=== PATIENT | male | born 1945 | race Caucasian/White ===

== ENCOUNTER → 2020-09-28 | Outpatient (CLI) | payer OTHER ==
[~2020-09-28] VITALS: Ht 182.9 cm; Wt 88.0 kg
[~2020-09-28] MED LIST: DEPO-TESTO200 MG/1 M IM; FLOMAX0.4 MG PO; FLONASE 0.05%50 MCG NARES; LISINOPRIL30 MG PO; METHOCARBAMOL500 M2 PO; MORPHINE SULFAT15 MG PO; NEURONTIN300 MG PO; NIFEDIPINE ER30 MG PO; NIFEDIPINE ER60 M1 PO; OXYBUTYNIN 5 MG5 M2 PO; PERCOCET 10-321 EAC1 PO; SILDENAFIL CIT100 MG PO; VENTOLIN HFA INH8 GM INH; VITAMIN B-121000 MC2 INJECTION
[2020-09-28 10:34] VITALS: BP 147/82
--- NOTE | 2020-09-28 11:34 | NUR ---
Pain Clinic Assessment: 1. History of Osteoarthritis: BACK NECK KNEES History of Rheumatoid Arthritis: DENIES 2. Height: 6 ft. 0 in. 182.9 cm. Weight: 194.0 lb. oz. 87.998 kg. Patient's BMI: 26.3 3. Vital Signs: BP: 147/82 Pulse: 89 Resp: 16 Temp: 02 Sat: 96 ECG Mon: 4. Pain Intensity: 4 to 10 5. Fall Risk: Dizziness: N Needs help standing or walking: N Fallen in the last 3 months: N Fall risk comments: 6. Patient on Blood Thinner: None 7. History of Hypertension: Y 8. Opioid Therapy greater than 6 weeks: Y Opiate Contract Signed: 9. Risk Assessment Tool Provided: LOW-3 10. Functional Assessment Tool: 50/70 11. Recreational Drug Use: Never Drug Type: Tobacco Use: Former Smoker Tobacco Type: Amount or Packs/day: How Many Years: Alcohol Use: Past use Frequency: Quant:
== END ==
LOC: PAIN 06:51
PROVIDERS: ATTEND Anesthesiology Pain Medicine
DX: M54.5 Low back pain (principal); M54.2 Cervicalgia; M47.812 Spondylosis without myelopathy or radiculopathy, cervical region; I10 Essential (primary) hypertension; Z79.899 Other long term (current) drug therapy

== ENCOUNTER → 2020-10-26 | Outpatient (CLI) | payer OTHER ==
[~2020-10-26] VITALS: Ht 182.9 cm; Wt 88.3 kg
[2020-10-26 08:03] VITALS: BP 133/69
--- NOTE | 2020-10-26 08:13 | NUR ---
Pain Clinic Assessment: 1. History of Osteoarthritis: BACK NECK KNEES History of Rheumatoid Arthritis: DENIES 2. Height: 6 ft. 0 in. 182.9 cm. Weight: 194.6 lb. oz. 88.270 kg. Patient's BMI: 26.4 3. Vital Signs: BP: 133/69 Pulse: 72 Resp: 16 Temp: 02 Sat: 97 ECG Mon: 4. Pain Intensity: 3 5. Fall Risk: Dizziness: N Needs help standing or walking: N Fallen in the last 3 months: N Fall risk comments: 6. Patient on Blood Thinner: None 7. History of Hypertension: Y 8. Opioid Therapy greater than 6 weeks: Y Opiate Contract Signed: 9. Risk Assessment Tool Provided: LOW-3 10. Functional Assessment Tool: 50/70 11. Recreational Drug Use: Never Drug Type: Tobacco Use: Former Smoker Tobacco Type: Amount or Packs/day: How Many Years: Alcohol Use: Past use Frequency: Quant:
== END ==
LOC: PAIN 06:45
PROVIDERS: ATTEND Anesthesiology Pain Medicine
DX: M47.812 Spondylosis without myelopathy or radiculopathy, cervical region (principal); I10 Essential (primary) hypertension; F11.20 Opioid dependence, uncomplicated; Z79.899 Other long term (current) drug therapy; Z79.890 Hormone replacement therapy; Z87.891 Personal history of nicotine dependence

== ENCOUNTER → 2020-12-07 | Outpatient (CLI) | payer OTHER ==
[~2020-12-07] VITALS: Ht 182.9 cm; Wt 83.7 kg
[2020-12-07 14:17] VITALS: BP 115/60
--- NOTE | 2020-12-07 14:28 | NUR ---
Pain Clinic Assessment: 1. History of Osteoarthritis: BACK NECK KNEES History of Rheumatoid Arthritis: DENIES 2. Height: 6 ft. 0 in. 182.9 cm. Weight: 184.6 lb. oz. 83.734 kg. Patient's BMI: 25.0 3. Vital Signs: BP: 115/60 Pulse: 98 Resp: 16 Temp: 02 Sat: 96 ECG Mon: 4. Pain Intensity: 8 5. Fall Risk: Dizziness: N Needs help standing or walking: N Fallen in the last 3 months: N Fall risk comments: 1 6. Patient on Blood Thinner: None 7. History of Hypertension: Y 8. Opioid Therapy greater than 6 weeks: Y Opiate Contract Signed: 9. Risk Assessment Tool Provided: LOW-3 10. Functional Assessment Tool: 50/70 11. Recreational Drug Use: Never Drug Type: Tobacco Use: Former Smoker Tobacco Type: Amount or Packs/day: How Many Years: Alcohol Use: Past use Frequency: Quant:
== END ==
LOC: PAIN 12:19
PROVIDERS: ATTEND Anesthesiology Pain Medicine
DX: M54.5 Low back pain (principal); I10 Essential (primary) hypertension; E23.0 Hypopituitarism; Z79.899 Other long term (current) drug therapy

== ENCOUNTER → 2021-01-04 | Outpatient (CLI) | payer OTHER ==
[~2021-01-04] VITALS: Ht 182.9 cm; Wt 85.0 kg
[2021-01-04 08:54] VITALS: BP 116/68
--- NOTE | 2021-01-04 10:10 | NUR ---
Pain Clinic Assessment: 1. History of Osteoarthritis: BACK NECK KNEES History of Rheumatoid Arthritis: DENIES 2. Height: 6 ft. in. 182.9 cm. Weight: 187.4 lb. oz. 85.004 kg. Patient's BMI: 25.4 3. Vital Signs: BP: 116/68 Pulse: 78 Resp: 18 Temp: 02 Sat: 97 ECG Mon: 4. Pain Intensity: 4 5. Fall Risk: Dizziness: N Needs help standing or walking: N Fallen in the last 3 months: N Fall risk comments: 1 6. Patient on Blood Thinner: None 7. History of Hypertension: Y 8. Opioid Therapy greater than 6 weeks: Y Opiate Contract Signed: 9. Risk Assessment Tool Provided: LOW-3 10. Functional Assessment Tool: 50/70 11. Recreational Drug Use: Never Drug Type: Tobacco Use: Former Smoker Tobacco Type: Amount or Packs/day: How Many Years: Alcohol Use: Past use Frequency: Quant:
== END ==
LOC: PAIN 07:20
PROVIDERS: ATTEND Anesthesiology Pain Medicine
DX: M48.02 Spinal stenosis, cervical region (principal); E29.1 Testicular hypofunction; I10 Essential (primary) hypertension; Z79.890 Hormone replacement therapy; Z79.899 Other long term (current) drug therapy; Z79.891 Long term (current) use of opiate analgesic; Z87.891 Personal history of nicotine dependence

== ENCOUNTER → 2021-02-01 | Outpatient (CLI) | payer OTHER ==
[~2021-02-01] VITALS: Ht 182.9 cm; Wt 86.5 kg
[~2021-02-01] MED LIST changes: +ARIMIDEX1 MG PO; +PROSCAR 5MG TABL5 M1 PO
[2021-02-01 08:07] VITALS: BP 117/69
--- NOTE | 2021-02-01 08:16 | NUR ---
Pain Clinic Assessment: 1. History of Osteoarthritis: BACK NECK KNEES History of Rheumatoid Arthritis: DENIES 2. Height: 6 ft. 0 in. 182.9 cm. Weight: 190.6 lb. oz. 86.456 kg. Patient's BMI: 25.8 3. Vital Signs: BP: 117/69 Pulse: 85 Resp: 16 Temp: 02 Sat: 96 ECG Mon: 4. Pain Intensity: 3 5. Fall Risk: Dizziness: Y Needs help standing or walking: N Fallen in the last 3 months: N Fall risk comments: 1 6. Patient on Blood Thinner: None 7. History of Hypertension: Y 8. Opioid Therapy greater than 6 weeks: Y Opiate Contract Signed: 9. Risk Assessment Tool Provided: LOW-3 10. Functional Assessment Tool: 50/70 11. Recreational Drug Use: Never Drug Type: Tobacco Use: Former Smoker Tobacco Type: Amount or Packs/day: How Many Years: Alcohol Use: Past use Frequency: Quant:
== END ==
LOC: PAIN 06:54
PROVIDERS: ATTEND Anesthesiology Pain Medicine
DX: M48.061 Spinal stenosis, lumbar region without neurogenic claudication (principal); M47.812 Spondylosis without myelopathy or radiculopathy, cervical region; G89.29 Other chronic pain; E29.1 Testicular hypofunction; I10 Essential (primary) hypertension; Z79.890 Hormone replacement therapy; Z79.891 Long term (current) use of opiate analgesic; Z79.899 Other long term (current) drug therapy; Z87.891 Personal history of nicotine dependence; Z96.612 Presence of left artificial shoulder joint; Z96.653 Presence of artificial knee joint, bilateral

== ENCOUNTER → 2021-03-01 | Outpatient (CLI) | payer OTHER ==
[~2021-03-01] VITALS: Ht 182.9 cm; Wt 85.0 kg
[~2021-03-01] MED LIST changes: +MOBIC15 MG PO
[2021-03-01 08:11] VITALS: BP 113/59
--- NOTE | 2021-03-01 08:20 | NUR ---
Pain Clinic Assessment: 1. History of Osteoarthritis: BACK NECK KNEES History of Rheumatoid Arthritis: DENIES 2. Height: 6 ft. 0 in. 182.9 cm. Weight: 187.4 lb. oz. 85.004 kg. Patient's BMI: 25.4 3. Vital Signs: BP: 113/59 Pulse: 76 Resp: 14 Temp: 02 Sat: 97 ECG Mon: 4. Pain Intensity: 3 5. Fall Risk: Dizziness: N Needs help standing or walking: N Fallen in the last 3 months: N Fall risk comments: 1 6. Patient on Blood Thinner: None 7. History of Hypertension: Y 8. Opioid Therapy greater than 6 weeks: Y Opiate Contract Signed: 01/04/21 9. Risk Assessment Tool Provided: LOW-3 10. Functional Assessment Tool: 50/ 11. Recreational Drug Use: Never Drug Type: Tobacco Use: Former Smoker Tobacco Type: Amount or Packs/day: How Many Years: Alcohol Use: Past use Frequency: Quant:
== END ==
LOC: PAIN 06:46
PROVIDERS: ATTEND Anesthesiology Pain Medicine
DX: M48.061 Spinal stenosis, lumbar region without neurogenic claudication (principal); M19.90 Unspecified osteoarthritis, unspecified site; E29.1 Testicular hypofunction; I10 Essential (primary) hypertension; Z79.899 Other long term (current) drug therapy; Z79.891 Long term (current) use of opiate analgesic

== ENCOUNTER → 2021-03-29 | Outpatient (CLI) | payer OTHER ==
[~2021-03-29] VITALS: Ht 182.9 cm; Wt 86.7 kg
[2021-03-29 08:08] VITALS: BP 128/65
--- NOTE | 2021-03-29 08:18 | NUR ---
Pain Clinic Assessment: 1. History of Osteoarthritis: BACK NECK KNEES History of Rheumatoid Arthritis: DENIES 2. Height: 6 ft. 0 in. 182.9 cm. Weight: 191.2 lb. oz. 86.728 kg. Patient's BMI: 25.9 3. Vital Signs: BP: 128/65 Pulse: 72 Resp: 14 Temp: 02 Sat: 97 ECG Mon: 4. Pain Intensity: 3 5. Fall Risk: Dizziness: N Needs help standing or walking: N Fallen in the last 3 months: N Fall risk comments: 1 6. Patient on Blood Thinner: None 7. History of Hypertension: Y 8. Opioid Therapy greater than 6 weeks: Y Opiate Contract Signed: 01/04/21 9. Risk Assessment Tool Provided: LOW-3 10. Functional Assessment Tool: / 11. Recreational Drug Use: Never Drug Type: Tobacco Use: Former Smoker Tobacco Type: Amount or Packs/day: How Many Years: Alcohol Use: Past use Frequency: Quant:
== END ==
LOC: PAIN 06:46
PROVIDERS: ATTEND Anesthesiology Pain Medicine
DX: G89.29 Other chronic pain (principal); M54.5 Low back pain; M48.00 Spinal stenosis, site unspecified; M47.812 Spondylosis without myelopathy or radiculopathy, cervical region; I10 Essential (primary) hypertension; Z79.891 Long term (current) use of opiate analgesic; Z79.899 Other long term (current) drug therapy

== ENCOUNTER → 2021-04-26 | Outpatient (CLI) | payer OTHER ==
[~2021-04-26] VITALS: Ht 182.9 cm; Wt 86.6 kg
[2021-04-26 08:11] VITALS: BP 142/75
--- NOTE | 2021-04-26 08:16 | NUR ---
Pain Clinic Assessment: 1. History of Osteoarthritis: BACK NECK KNEES History of Rheumatoid Arthritis: DENIES 2. Height: 6 ft. 0 in. 182.9 cm. Weight: 191.0 lb. oz. 86.637 kg. Patient's BMI: 25.9 3. Vital Signs: BP: 142/75 Pulse: Resp: 79 Temp: 02 Sat: 97 ECG Mon: 4. Pain Intensity: 4 5. Fall Risk: Dizziness: N Needs help standing or walking: N Fallen in the last 3 months: N Fall risk comments: 1 6. Patient on Blood Thinner: None 7. History of Hypertension: Y 8. Opioid Therapy greater than 6 weeks: Y Opiate Contract Signed: 01/04/21 9. Risk Assessment Tool Provided: LOW-3 10. Functional Assessment Tool: 50/ 11. Recreational Drug Use: Never Drug Type: Tobacco Use: Former Smoker Tobacco Type: Amount or Packs/day: How Many Years: Alcohol Use: Past use Frequency: Quant:
== END ==
LOC: PAIN 06:54
PROVIDERS: ATTEND Anesthesiology Pain Medicine
DX: G89.29 Other chronic pain (principal); M54.5 Low back pain; M47.812 Spondylosis without myelopathy or radiculopathy, cervical region; E29.1 Testicular hypofunction; I10 Essential (primary) hypertension; Z79.899 Other long term (current) drug therapy; Z96.612 Presence of left artificial shoulder joint; Z96.653 Presence of artificial knee joint, bilateral

== ENCOUNTER → 2021-05-24 | Outpatient (CLI) | payer OTHER ==
[~2021-05-24] VITALS: Ht 182.9 cm; Wt 83.1 kg
[~2021-05-24] MED LIST changes: +CEFPODOXIME PR200 M1 PO; +DEXAMETHASONE6 MG PO; +ELIQUIS5 MG PO; +MAGNESIUM500 MG PO; +VITAMIN D350 MCG PO; +ZINC50 M3 PO; +ZOLPIDEM TARTRA10 MG PO
[2021-05-24 08:13] VITALS: BP 144/75
[2021-05-24 08:15] VITALS: BP 144/81
--- NOTE | 2021-05-24 08:24 | NUR ---
Pain Clinic Assessment: 1. History of Osteoarthritis: BACK NECK KNEES History of Rheumatoid Arthritis: DENIES 2. Height: 6 ft. 0 in. 182.9 cm. Weight: 183.3 lb. oz. 83.144 kg. Patient's BMI: 24.9 3. Vital Signs: BP: 144/81 Pulse: 82 Resp: 14 Temp: 02 Sat: 97 ECG Mon: 4. Pain Intensity: 4 5. Fall Risk: Dizziness: N Needs help standing or walking: N Fallen in the last 3 months: N Fall risk comments: 1 6. Patient on Blood Thinner: JOY 7. History of Hypertension: Y 8. Opioid Therapy greater than 6 weeks: Y Opiate Contract Signed: 01/04/21 9. Risk Assessment Tool Provided: LOW-3 10. Functional Assessment Tool: 11. Recreational Drug Use: Never Drug Type: Tobacco Use: Former Smoker Tobacco Type: Amount or Packs/day: How Many Years: Alcohol Use: Past use Frequency: Quant:
== END ==
LOC: PAIN 06:53
PROVIDERS: ATTEND Anesthesiology Pain Medicine
DX: M48.061 Spinal stenosis, lumbar region without neurogenic claudication (principal); G89.29 Other chronic pain; M47.816 Spondylosis without myelopathy or radiculopathy, lumbar region; M13.88 Other specified arthritis, other site; I10 Essential (primary) hypertension; Z79.891 Long term (current) use of opiate analgesic; Z96.612 Presence of left artificial shoulder joint; Z96.653 Presence of artificial knee joint, bilateral

== ENCOUNTER → 2021-06-21 | Outpatient (CLI) | payer OTHER ==
[~2021-06-21] VITALS: Ht 182.9 cm; Wt 83.2 kg
[~2021-06-21] MED LIST changes: +CARAFATE 1 GM TA1 GM PO; +NEXIUM 40 MG CA40 M1 PO
[2021-06-21 08:29] VITALS: BP 146/83
--- NOTE | 2021-06-21 08:33 | NUR ---
Pain Clinic Assessment: 1. History of Osteoarthritis: BACK NECK KNEES History of Rheumatoid Arthritis: DENIES 2. Height: 6 ft. 0 in. 182.9 cm. Weight: 183.4 lb. oz. 83.190 kg. Patient's BMI: 24.9 3. Vital Signs: BP: 146/83 Pulse: 90 Resp: 18 Temp: 02 Sat: 98 ECG Mon: 4. Pain Intensity: 4 5. Fall Risk: Dizziness: N Needs help standing or walking: N Fallen in the last 3 months: N Fall risk comments: 1 6. Patient on Blood Thinner: JOY 7. History of Hypertension: Y 8. Opioid Therapy greater than 6 weeks: Y Opiate Contract Signed: 01/04/21 9. Risk Assessment Tool Provided: LOW-3 10. Functional Assessment Tool: 11. Recreational Drug Use: Never Drug Type: Tobacco Use: Former Smoker Tobacco Type: Amount or Packs/day: How Many Years: Alcohol Use: Past use Frequency: Quant:
== END ==
LOC: PAIN 08:09
PROVIDERS: ATTEND Anesthesiology Pain Medicine
DX: M47.812 Spondylosis without myelopathy or radiculopathy, cervical region (principal); R07.81 Pleurodynia; R10.9 Unspecified abdominal pain; M48.00 Spinal stenosis, site unspecified; I10 Essential (primary) hypertension; Z96.612 Presence of left artificial shoulder joint; Z96.653 Presence of artificial knee joint, bilateral; Z79.899 Other long term (current) drug therapy

== ENCOUNTER → 2021-07-19 | Outpatient (CLI) | payer OTHER ==
[~2021-07-19] VITALS: Ht 182.9 cm; Wt 84.6 kg
[~2021-07-19] MED LIST changes: +CARAFATE 1 GM TA1 G1 PO; +DEXILANT60 MG PO; +NEURONTIN100 MG PO
[2021-07-19 08:12] VITALS: BP 138/71
--- NOTE | 2021-07-19 08:28 | NUR ---
Pain Clinic Assessment: 1. History of Osteoarthritis: BACK NECK KNEES History of Rheumatoid Arthritis: DENIES 2. Height: 6 ft. 0 in. 182.9 cm. Weight: 186.6 lb. oz. 84.641 kg. Patient's BMI: 25.3 3. Vital Signs: BP: 138/71 Pulse: 79 Resp: 18 Temp: 02 Sat: 97 ECG Mon: 4. Pain Intensity: 4;L SIDE 8 5. Fall Risk: Dizziness: N Needs help standing or walking: N Fallen in the last 3 months: N Fall risk comments: 1 6. Patient on Blood Thinner: JOY 7. History of Hypertension: Y 8. Opioid Therapy greater than 6 weeks: Y Opiate Contract Signed: 01/04/21 9. Risk Assessment Tool Provided: LOW-3 10. Functional Assessment Tool: 50/ 11. Recreational Drug Use: Never Drug Type: Tobacco Use: Former Smoker Tobacco Type: Amount or Packs/day: How Many Years: Alcohol Use: Past use Frequency: Quant:
== END ==
LOC: PAIN 07:42
PROVIDERS: ATTEND Anesthesiology Pain Medicine
DX: M47.812 Spondylosis without myelopathy or radiculopathy, cervical region (principal); M48.061 Spinal stenosis, lumbar region without neurogenic claudication; I10 Essential (primary) hypertension; M47.816 Spondylosis without myelopathy or radiculopathy, lumbar region; M48.07 Spinal stenosis, lumbosacral region; M25.78 Osteophyte, vertebrae; M12.88 Other specific arthropathies, not elsewhere classified, other specified site; Z88.8 Allergy status to other drugs, medicaments and biological substances; Z79.891 Long term (current) use of opiate analgesic; Z96.653 Presence of artificial knee joint, bilateral; Z96.612 Presence of left artificial shoulder joint; Z79.899 Other long term (current) drug therapy

== ENCOUNTER → 2021-08-16 | Outpatient (CLI) | payer OTHER ==
[~2021-08-16] VITALS: Ht 182.9 cm; Wt 89.8 kg
[2021-08-16 08:27] VITALS: BP 143/81
--- NOTE | 2021-08-16 08:32 | NUR ---
Pain Clinic Assessment: 1. History of Osteoarthritis: BACK NECK KNEES History of Rheumatoid Arthritis: DENIES 2. Height: 6 ft. 0 in. 182.9 cm. Weight: 198.0 lb. oz. 89.812 kg. Patient's BMI: 26.8 3. Vital Signs: BP: 143/81 Pulse: 80 Resp: 20 Temp: 02 Sat: 96 ECG Mon: 4. Pain Intensity: 7 - SHOULDER 3 -BACK 5. Fall Risk: Dizziness: N Needs help standing or walking: N Fallen in the last 3 months: N Fall risk comments: 1 6. Patient on Blood Thinner: KEVINQUIS 7. History of Hypertension: Y 8. Opioid Therapy greater than 6 weeks: Y Opiate Contract Signed: 01/04/21 9. Risk Assessment Tool Provided: LOW-3 10. Functional Assessment Tool: 50/70 11. Recreational Drug Use: Never Drug Type: Tobacco Use: Former Smoker Tobacco Type: Amount or Packs/day: How Many Years: Alcohol Use: Past use Frequency: Quant:
== END ==
LOC: PAIN 08:09
PROVIDERS: ATTEND Clinical Nurse Specialist Adult Health
DX: G89.29 Other chronic pain (principal); M54.50 Low back pain, unspecified; M25.511 Pain in right shoulder; M48.061 Spinal stenosis, lumbar region without neurogenic claudication; M19.90 Unspecified osteoarthritis, unspecified site; I10 Essential (primary) hypertension; Z87.891 Personal history of nicotine dependence; Z88.8 Allergy status to other drugs, medicaments and biological substances; Z79.899 Other long term (current) drug therapy

== ENCOUNTER → 2021-09-13 | Outpatient (CLI) | payer OTHER ==
[~2021-09-13] VITALS: Ht 182.9 cm; Wt 89.4 kg
[2021-09-13 08:24] VITALS: BP 161/90
== END ==
LOC: PAIN 08:03
PROVIDERS: ATTEND Clinical Nurse Specialist Adult Health
DX: M13.89 Other specified arthritis, multiple sites (principal); G89.29 Other chronic pain; M25.511 Pain in right shoulder; I10 Essential (primary) hypertension; M48.00 Spinal stenosis, site unspecified; Z79.899 Other long term (current) drug therapy; Z88.8 Allergy status to other drugs, medicaments and biological substances